=== PATIENT | female | born 1950 | race Caucasian/White ===

== ENCOUNTER 2019-08-03 11:57 | Inpatient (IN) ==
--- NOTE | 2019-08-03 12:52 | EKG Report ---
Test Performed on : 08/03/2019 12:40:36 PM Test Reason : chest pain Blood Pressure : / mmHG Vent. Rate : 069 BPM Atrial Rate : 069 BPM P-R Int : 144 ms QRS Dur : 082 ms QT Int : 416 ms P-R-T Axes : 000 191 111 degrees QTc Int : 445 ms Normal sinus rhythm. Right superior axis deviation Abnormal ECG When compared with ECG of 10-JUL-2016 11:34, QRS axis shifted left Nonspecific T wave abnormality now evident in Inferior leads Nonspecific T wave abnormality now evident in Anterior leads Confirmed by Neftaly ART, Dangelo ([id number]) on 08/04/2019 8:19:46 AM
[2019-08-03 13:37] LABS: BASO# 0.05 X1000 (0.0-0.2); BASO% 0.4 % (0.0-0.8); EOS# 0.12 X1000 (0.0-0.7); HEMATOCRIT 40.1 % (37.0-47.0); HEMOGLOBIN 13.5 g/dL (12.0-16.0); IMM GRAN# 0.06 X1000 (0.0-0.04); IMM GRAN% 0.5 % (0.0-0.5); LYMPH# 3.41 X1000 (1.2-3.4); LYMPH% 29.2 % (20.5-51.1); MCH 28.6 PG (27-31); MCHC 33.7 g/dL (33-37); MONO# 0.83 X1000 (0.11-0.59); MONO% 7.1 % (1.7-9.3); MPV 9.9 FL (7.4-10.4); NEUT# 7.21 X1000 (1.4-6.5); NEUT% 61.8 % (42.2-75.2); PLT 341 X1000 (130-400); RBC 4.72 XMIL (4.2-5.4); RDW 13.1 % (11.5-14.5); WBC 11.68 X1000 (4.8-10.8)
[2019-08-03] MEDS: LEVAQUIN 500 MG/D5W 500 MG/100 ML IVPB IV SCH (13:37)
[2019-08-03] MEDS: LOVENOX SUBQ SCH (13:37)
[2019-08-03] MEDS: NS 1,000 ML IV SCH (13:38)
[2019-08-03] MEDS: TUSSIONEX LIQUID PO PRN (13:38)
[2019-08-03 13:55] LABS: AGAP 16; ALB/GLOB RATIO 2.1; ALBUMIN 4.4 g/dL (3.5-5.0); ALKALINE PHOSPHATASE 79 U/L (32-104); BUN 15 mg/dL (8-22); CALCIUM 9.2 mg/dL (8.8-10.2); CHLORIDE 94 mmol/L (98-107); CK PROFILE 74 U/L (24-173); COSMO 269; CREATININE 0.8 mg/dL (0.5-0.9); ESTIMATED GFR > 60; GLUCOSE 104 mg/dL (70-104); GOT 19 U/L (10-30); GPT 24 U/L (10-36); MAGNESIUM 1.4 mg/dL (1.5-2.7); POTASSIUM 3.3 mmol/L (3.5-5.1); SODIUM 134 mmol/L (136-145); TCO2 24 mmol/L (25-35); TOTAL PROTEIN 6.5 g/dL (6.3-8.3)
--- NOTE | 2019-08-03 15:29 | Diag Imaging Result Doc PS360 ---
CHEST-2 VIEWS - 08/03/2019 INDICATION: SOB COMPARISON: 07/10/2016 FINDINGS: There is an implanted cardiac device. There are lumbar spine fusion rods. The lungs are clear. Heart size is normal. No pneumothorax or pleural effusion. IMPRESSION: Negative exam. Electronically signed by Clement Carrington 08/03/2019 3:26 PM
[2019-08-03] MEDS: POTASSIUM CHLORIDE 20 MEQ/SWI 20 MEQ/100 ML IVPB IV SCH ×2 (15:45→21:29)
[2019-08-03] MEDS: SOLU-MEDROL IV SCH (15:45)
[2019-08-03] MEDS: ROBITUSSIN-DM PO PRN (15:51)
[2019-08-03] MEDS ORDERED: NS NEB INH SCH (19:45)
[2019-08-03] MEDS ORDERED: XOPENEX NEB INH ONE (19:45)
[2019-08-03] MEDS ORDERED: MAGNESIUM SULFATE 2 GM/S.W.I. 2 GM/50 ML IVPB IV ONE (20:55)
[2019-08-03] MEDS ORDERED: NITROGLYCERIN SL PRN (21:00)
[2019-08-03] MEDS ORDERED: NEXIUM IV SCH (21:00)
[2019-08-03] MEDS ORDERED: LOPRESSOR PO SCH (21:00)
[2019-08-03] MEDS ORDERED: LOVENOX SUBQ SCH (21:00)
[2019-08-03] MEDS ORDERED: SODIUM CHLORIDE 0.9% INJ SCH (21:00)
[2019-08-03] MEDS: PROTONIX IV SCH (21:24)
[2019-08-03] MEDS: SODIUM CHLORIDE 0.9% INJ SCH (21:24)
[2019-08-03] MEDS: TRANDATE PO SCH (21:24)
[2019-08-03] MEDS: TESSALON PO SCH (21:25)
[2019-08-03] MEDS: ZETIA PO SCH (21:25)
[2019-08-04] MEDS: TESSALON PO SCH ×3 (04:21→20:21)
[2019-08-04] MEDS: NS 1,000 ML IV SCH ×2 (04:21→18:47)
--- NOTE | 2019-08-04 07:19 | HISTORY AND PHYSICAL ---
CHIEF COMPLAINT: Incessant cough, shortness of breath, and wheezing since Saturday. HISTORY OF PRESENT ILLNESS: She is a 68-year-old white female who has been doing well. Two weeks ago, I did an excision of sebaceous cyst on the forehead. She was then seen in our clinic on Saturday for incessant cough and URI symptoms. Chest x-ray was negative. The patient was sent home after steroid, and antibiotic shot with outpatient treatment. The patient doing very well on Saturday and Saturday. She is coughing incessantly. She has dry cough and wheezing. No chest pain. Since she failed with outpatient treatment, I admitted her to the hospital. During the hospital, she has been coughing continuously. The patient was given Tessalon, Robitussin DM, and Tussionex without any help. Chest x-ray was stable. EKG normal sinus, nothing acute. As a result, she was admitted with asthmatic bronchitis. She was also dehydrated with low sodium and low potassium. She needs some IV fluids and potassium replacement. As a result, hospital admission was warranted. PAST MEDICAL HISTORY: Prinzmetal's angina, hypertension, acid reflux disease with esophagitis, hyperlipidemia, IBS, metabolic syndrome, and type 2 diabetes without complication. PAST SURGICAL HISTORY: Benign breast biopsy, hysterectomy, back surgery, and insert loop monitor. ALLERGIES: Amlodipine due to swelling. SOCIAL HISTORY: . Lives in [place]. 4 kids. No smoking. No drugs. No alcohol abuse. FAMILY HISTORY: Father of lung cancer at 59. Mom of leukemia at 50. MEDICATIONS: Prior to admission: 1. Metformin 500 p.o. b.i.d. 2. Potassium 20 mEq daily. 3. Aspirin 81 mg daily. 4. Linzess 290 mcg daily. 5. Vitamin D3 5000 units daily. 6. Nitroglycerin as needed. 7. Flexeril 10 mg b.i.d. 8. Cardizem 360 daily. 9. Tramadol 50 daily. 10. Prilosec 20 daily. 11. Zetia 10 daily. 12. Fenofibrate 145 daily. 13. Hydrochlorothiazide 50 daily. 14. Labetalol 200 p.o. b.i.d. 15. Isosorbide 60 daily. REVIEW OF SYSTEMS: HEENT: Sebaceous cyst was excised in the mid forehead. No headache. No vision problem. No earache. Sniffles. No sore throat. Neck: No neck pain. No goiter. No lymphadenopathy. Cardiopulmonary: Dry cough, shortness of breath, and wheezing. No chest pain. GI: No nausea, vomiting, or abdominal pain. : No history of urgency, hesitancy, frequency, or dysuria. No swelling of legs. No joint pain. Neurologic: No focal symptoms or weakness. PHYSICAL EXAMINATION: Temperature 97.3 degrees, pulse 59, blood pressure 144/74, 5 feet 6 inches and 170 pounds, and room air 100%. HEENT: Atraumatic, normocephalic. Pupils equal and reactive to light. TMs are normal. Nose and throat within normal limits. NECK: Supple. No lymphadenopathy. No goiter. CHEST: Bilateral air entry. No wheezing. HEART: Sounds are regular. Belly is soft and nontender. Good bowel sounds. No peripheral edema. No cyanosis. No obvious neurological deficits. INVESTIGATIONS: White cell count 11, hematocrit 40, and platelets 341,000. Sodium 134, potassium 3.3, glucose 147, and magnesium 1.4. Cardiac enzymes proBNP was normal. Chest x-ray negative. EKG normal sinus. Nothing acute. ASSESSMENT AND PLAN: 1. A 68-year-old white female admitted to the hospital with incessant cough due to asthmatic bronchitis, unable to improve with outpatient treatment. Plan is IV Levaquin, IV steroids, and symptomatic treatment for cough with Tessalon, guaifenesin, Tussionex, and Tessalon Perles. 2. Dehydration. IV fluids. 3. Hypokalemia. Replace the potassium. 4. Hypomagnesemia. Replace the magnesium. I am going to slowly reconcile home medicines. Basically, Zetia and metoprolol. We will use the Nexium IV for GI prophylaxis and Xopenex as needed. 5. Initiate vaccination protocol. Discussed with the caregiver at bedside and will follow up. cc: MD GERRY Marcum
[2019-08-04] MEDS ORDERED: SOLU-MEDROL IV SCH (09:00)
[2019-08-04] MEDS: ASPIRIN EC PO SCH (09:12)
[2019-08-04] MEDS: VITAMIN D PO SCH (09:12)
[2019-08-04] MEDS: IMDUR PO SCH (09:12)
[2019-08-04] MEDS: KLOR-CON PO SCH (09:12)
[2019-08-04] MEDS: TRANDATE PO SCH ×2 (09:12→20:21)
[2019-08-04] MEDS: TRICOR PO SCH (09:12)
[2019-08-04] MEDS: TUSSIONEX LIQUID PO PRN ×2 (09:15→19:32)
[2019-08-04] MEDS: LOVENOX SUBQ SCH (12:21)
[2019-08-04] MEDS: ROBITUSSIN-DM PO PRN ×2 (12:22→15:54)
[2019-08-04] MEDS: LEVAQUIN 500 MG/D5W 500 MG/100 ML IVPB IV SCH (12:23)
[2019-08-04] MEDS: SOLU-MEDROL IV SCH (15:55)
[2019-08-04] MEDS: XOPENEX NEB INH PRN (19:47)
[2019-08-04] MEDS: ZETIA PO SCH (20:20)
[2019-08-04] MEDS: PROTONIX IV SCH (20:21)
[2019-08-04] MEDS: SODIUM CHLORIDE 0.9% INJ SCH (20:21)
[2019-08-05] MEDS: ROBITUSSIN-DM PO PRN ×2 (00:19→09:53)
--- NOTE | 2019-08-05 00:37 | PROGRESS NOTE ---
DATE: 08/04/2019 SUBJECTIVE: The patient's cough is better. Decreased shortness of breath and wheezing. is at bedside. OBJECTIVE: On exam, temperature is 97 degrees, pulse 97, vital signs are stable. HEENT exam within normal limits. Neck is supple. Chest: Decreased wheezing. Distant heart sounds. Belly is soft, nontender. Saturation 99% on room air. INVESTIGATIONS: None reported. ASSESSMENT AND PLAN: 1. Acute asthmatic bronchitis with persistent cough. Continue present treatment with steroids, Levaquin and bronchodilators. 2. Symptomatic treatment for cough. 3. Deep vein thrombosis and gastrointestinal prophylaxis as per order sheet. 4. Hyponatremia. Intravenous fluids and replace the electrolytes. 5. Continue present treatment until she is completely better and the family has agreed upon. Level of documentation 25 minutes. cc: Anand Mcclelland MD
[2019-08-05] MEDS: TESSALON PO SCH ×3 (04:13→20:26)
[2019-08-05] MEDS: IMDUR PO SCH (09:45)
[2019-08-05] MEDS: TRANDATE PO SCH ×2 (09:45→20:26)
[2019-08-05] MEDS: KLOR-CON PO SCH (09:45)
[2019-08-05] MEDS: ASPIRIN EC PO SCH (09:45)
[2019-08-05] MEDS: VITAMIN D PO SCH (09:46)
[2019-08-05] MEDS: TRICOR PO SCH (09:46)
[2019-08-05] MEDS: NS 1,000 ML IV SCH ×2 (09:51→20:25)
[2019-08-05] MEDS: LEVAQUIN 500 MG/D5W 500 MG/100 ML IVPB IV SCH (12:44)
[2019-08-05] MEDS: LOVENOX SUBQ SCH (12:44)
[2019-08-05] MEDS: LINZESS PO SCH (12:44)
[2019-08-05] MEDS: SOLU-MEDROL IV SCH (16:21)
[2019-08-05] MEDS: XOPENEX NEB INH PRN (20:11)
[2019-08-05] MEDS: PROTONIX IV SCH (20:25)
[2019-08-05] MEDS: SODIUM CHLORIDE 0.9% INJ SCH (20:25)
[2019-08-05] MEDS: ZETIA PO SCH (20:26)
--- NOTE | 2019-08-05 21:41 | PROGRESS NOTE ---
DATE: 08/05/2019 SUBJECTIVE: The patient is slowly getting better. Decreased cough and wheezing. REVIEW OF SYSTEMS: None reported. PHYSICAL EXAMINATION: Temperature is 97 degrees, pulse 62, vitals are stable.HEENT: Within normal limits. Neck: Supple. No lymphadenopathy. Chest: Bilateral air entry. Decreased wheezing. Heart: Sounds are regular. Rest of the exam is benign. ASSESSMENT AND PLAN: 1. Acute asthmatic bronchitis, stable. 2. Cough and dehydration. IV fluids. 3. Replace the electrolytes. 4. Continue present treatment with IV antibiotics, IV steroids, and symptomatic treatment for cough and if she continues to improve, we will discharge on Saturday. LEVEL OF DOCUMENTATION: 25 minutes. cc: Anand Mcclelland MD
[2019-08-06] MEDS: TESSALON PO SCH ×3 (06:18→21:01)
[2019-08-06] MEDS: NS 1,000 ML IV SCH ×3 (06:18→21:02)
[2019-08-06] MEDS: LINZESS PO SCH (06:18)
[2019-08-06] MEDS: XOPENEX NEB INH PRN ×3 (08:32→22:34)
[2019-08-06] MEDS: IMDUR PO SCH (09:12)
[2019-08-06] MEDS: KLOR-CON PO SCH (09:12)
[2019-08-06] MEDS: TRANDATE PO SCH ×2 (09:12→21:01)
[2019-08-06] MEDS: ASPIRIN EC PO SCH (09:12)
[2019-08-06] MEDS: VITAMIN D PO SCH (09:12)
[2019-08-06] MEDS: TRICOR PO SCH (09:12)
[2019-08-06] MEDS: LOVENOX SUBQ SCH (12:48)
[2019-08-06] MEDS: LEVAQUIN 500 MG/D5W 500 MG/100 ML IVPB IV SCH (12:48)
[2019-08-06] MEDS: ROBITUSSIN-DM PO PRN (14:56)
[2019-08-06] MEDS: SOLU-MEDROL IV SCH (16:17)
[2019-08-06] MEDS: ZETIA PO SCH (21:02)
[2019-08-06] MEDS: PROTONIX IV SCH (21:02)
[2019-08-06] MEDS: SODIUM CHLORIDE 0.9% INJ SCH (21:02)
--- NOTE | 2019-08-06 21:57 | PROGRESS NOTE ---
DATE: 08/06/2019 SUBJECTIVE: The patient's cough is much improved and decreased shortness of breath. REVIEW OF SYSTEMS: None reported. PHYSICAL EXAMINATION: Temperature is 97 degrees, pulse 66. Vitals are stable.HEENT: Within normal limits. Neck: Supple. No lymphadenopathy. No goiter. Chest: Bilateral air entry and decreased wheezing. Heart: Sounds are regular. ASSESSMENT AND PLAN: Acute asthmatic bronchitis, stable. Dehydration is better. Continue present treatment with bronchodilators IV steroids, IV antibiotics. If she continues to improve, we will discharge in the morning. LEVEL OF DOCUMENTATION: 35 minutes. cc: Anand Mcclelland MD
[2019-08-07] MEDS: ROBITUSSIN-DM PO PRN ×2 (02:04→12:34)
[2019-08-07] MEDS ORDERED: XOPENEX NEB INH ONE (02:19)
[2019-08-07] MEDS ORDERED: NS NEB INH SCH (02:30)
[2019-08-07] MEDS: TESSALON PO SCH ×3 (06:01→21:06)
[2019-08-07] MEDS: NS 1,000 ML IV SCH ×3 (06:01→22:46)
[2019-08-07] MEDS: LINZESS PO SCH (06:02)
[2019-08-07] MEDS: TRANDATE PO SCH ×2 (10:11→21:10)
[2019-08-07] MEDS: KLOR-CON PO SCH (10:11)
[2019-08-07] MEDS: IMDUR PO SCH (10:11)
[2019-08-07] MEDS: VITAMIN D PO SCH (10:11)
[2019-08-07] MEDS: ASPIRIN EC PO SCH (10:11)
[2019-08-07] MEDS: TRICOR PO SCH (10:11)
[2019-08-07] MEDS: LEVAQUIN 500 MG/D5W 500 MG/100 ML IVPB IV SCH (12:32)
[2019-08-07] MEDS: LOVENOX SUBQ SCH (12:32)
[2019-08-07] MEDS: SOLU-MEDROL IV SCH (15:54)
--- NOTE | 2019-08-07 20:59 | PROGRESS NOTE ---
DATE: 08/07/2019 SUBJECTIVE: The patient had last night more cough and bronchitis. She wants to continue IV antibiotics and bronchodilators 1 more day. REVIEW OF SYSTEMS: No chest pain. OBJECTIVE: Vital signs: Afebrile. Vitals are stable. HEENT: Within normal limits. Neck: Supple. No lymphadenopathy. Chest: Bilateral air entry. Cardiovascular: Heart sounds are regular. Abdomen: Belly is soft, nontender. Neurologic: No obvious deficits. INVESTIGATIONS: None. ASSESSMENT AND PLAN: 1. Acute bronchitis, better. Continue present treatment with IV steroids, bronchodilators. 2. Dehydration on IV fluids. 3. Hyperlipidemia on Tricor and Zetia. Plan of care is we will discharge in the morning with Medrol Dosepak and Levaquin and follow up in my office next week. LEVEL OF DOCUMENTATION: 25 minutes. cc: Anand Mcclelland MD
[2019-08-07] MEDS: SODIUM CHLORIDE 0.9% INJ SCH (21:00)
[2019-08-07] MEDS: ZETIA PO SCH (21:10)
[2019-08-07] MEDS: PROTONIX IV SCH (21:12)
[2019-08-08] MEDS: TUSSIONEX LIQUID PO PRN (03:47)
[2019-08-08] MEDS: LINZESS PO SCH (06:06)
[2019-08-08] MEDS: TESSALON PO SCH (06:06)
[2019-08-08] MEDS: NS 1,000 ML IV SCH (07:23)
[2019-08-08 07:52] VITALS: BP 189/86
--- NOTE | 2019-08-10 22:28 | DISCHARGE SUMMARY ---
ADMISSION DATE: 08/03/2019 DISCHARGE DATE: 08/08/2019 DISCHARGING DIAGNOSIS: Acute asthmatic bronchitis. SECONDARY DIAGNOSES: 1. History of Prinzmetal angina. 2. Hypertension. 3. Acid reflux disease. 4. Hyperlipidemia. 5. Irritable bowel syndrome. 6. Type 2 diabetes without complications. 7. Metabolic syndrome. 8. Recent incision of sebaceous cyst on the forehead. BRIEF HISTORY: Please see the H and P that was done on 08/03/2019. In brief, she is a 68-year- old white female with above problems, failed to improve with outpatient treatment with incessant cough, wheezing, shortness of breath. The patient was treated initially as an outpatient. She was coughing, mostly dry cough with wheezing. HOSPITAL COURSE: The patient was given symptomatic treatment for cough, IV fluids for dehydration. For hyponatremia, hypokalemia, hypomagnesemia, replaced the electrolytes along with IV steroids, IV antibiotics. Patient slowly got better, and chest x-ray was no pneumonia. Rest of the hospital course was uneventful. LABORATORY DATA: White cell count 11, hematocrit 40, platelets 341,000. Sodium 134, potassium 3.3, chloride 94, BUN 15, creatinine 0.8, glucose 104, magnesium 1.4. LFTs and cardiac enzymes were negative. At the time of discharge, patient is stable. DISCHARGE INSTRUCTIONS: 1. Initiate vaccination protocol. 2. Metformin 500 p.o. b.i.d. 3. Potassium 20 mEq daily. 4. Aspirin 81 mg daily. 5. Linzess 290 mcg daily. 6. Vitamin D3 5000 units daily. 7. Nitroglycerin as needed. 8. Flexeril 10 mg p.o. b.i.d. 9. Cardizem 360 daily. 10. Tramadol 50 daily. 11. Prilosec 20 daily. 12. Zetia 10 mg daily. 13. Fenofibrate 145 daily. 14. Hydrochlorothiazide 50 mg daily. 15. Labetalol 200 p.o. b.i.d. 16. Isosorbide 60 mg daily. 17. Levaquin 500 daily for 7 days. 18. Medrol Dosepak. 19. Follow up in my office in 10 days. cc: Anand Mcclelland MD
== END 2019-08-08 09:04 | disposition home or self-care (01) | DRG 202 ==
LOC: OBSVTOIN 11:57 → INTOOBSV 11:57 → DIRADM 11:57 → 3N 12:17
PROVIDERS: ADMIT Internal Medicine; ATTEND Internal Medicine